=== PATIENT | female | born 1995 | race Caucasian/White ===

== ENCOUNTER 2016-07-08 12:47 | Day surgery (SDC) | payer MEDICAID, OTHER ==
[~2016-07-08 12:47] MED LIST: Bupivacaine 0.5% 50 ML MDV ONE; Lidocaine 1% with EPINEPHrine 1:100,000 50 ML MDV ONE; Midazolam 1 MG/ML 2 ML SDV ONE; Propofol 200 MG/20 ML SDV ONE; fentaNYL 100 MCG/2 ML SDV ONE
[2016-07-08] MEDS ORDERED: Sodium Chloride 0.9% 1,000 ML IV SCH (13:30)
[2016-07-08] MEDS ORDERED: ceFAZolin 2 GM in Sodium Chloride 0.9% 50 ML IV ONE (13:30)
[2016-07-08] MEDS ORDERED: Ondansetron 4 MG/2 ML SDV ONE (13:59)
[2016-07-08] MEDS ORDERED: metroNIDAZOLE/Normal Saline 500 MG in Premix Bag 1 BAG IV ONE (14:00)
[2016-07-08] MEDS ORDERED: Bacitracin Oint 1 GM U/D Packet ONE (14:20)
[2016-07-08 15:28] VITALS: BP 128/79
--- NOTE | 2016-07-11 07:27 | OR ---
DATE OF PROCEDURE: 07/08/2016 PROCEDURE: Excision right perineal/buttock lesion. COMPLICATIONS: None. BED MAKER: None. ANESTHESIA: MAC/local. INDICATIONS: This 20-year-old female with a right buttock/perineal lesion requiring excision. Risks, benefits, alternatives, and limitations, including but not limited to, infection, bleeding, and the wound failure were explained to the patient and she wished to proceed. PROCEDURE IN DETAIL: The patient was placed in supine position in the frog leg position. This area was prepped and draped. An elliptical incision was made approximately 3.5 cm in size. This was performed after anesthetizing with lidocaine. This was performed using a 15 blade. Electrocautery was then used to carry this down full thickness. This was then excised and sent for pathology. The wound was then closed with 3-0 Vicryl in an interrupted fashion, 4-0 Prolene in a running fashion. The patient tolerated the procedure well. Ritesh Chun MD /[id number]
== END 2016-07-08 15:30 | disposition home or self-care (01) ==
LOC: JP.SDS 12:47
PROVIDERS: ATTEND Surgery
DX: L02.31 Cutaneous abscess of buttock (principal); Z91.09 Other allergy status, other than to drugs and biological substances
CPT/HCPCS: 21931; J0690; J2250; J2405; J2704; J3010; J7040; J7050; 88304

== ENCOUNTER 2017-07-11 07:04 | Emergency (ER) | payer SELFPAY ==
[2017-07-11 07:23] VITALS: BP 123/78
[2017-07-11] MEDS ORDERED: Ondansetron 4 MG/2 ML SDV IVPUSH ONE (07:34)
[2017-07-11] MEDS ORDERED: HYDROmorphone 0.5 MG/0.5 ML Syringe IVPUSH ONE (07:34)
--- NOTE | 2017-07-11 07:37 | EDM.PDOC ---
ED HPI GENERAL MEDICAL PROBLEM - General Chief Complaint: Abdominal Pain Stated Complaint: RIGHT ABD PAIN Time Seen by Provider: 07/11/17 07:34 Source of Information: Reports: Patient History Limitations: Reports: No Limitations - History of Present Illness INITIAL COMMENTS - FREE TEXT/NARRATIVE: pt developed acute rt flank pain at five thirty this am. She does have a history of a kidney stone in the past. She has not vomited. She is rating her pain at a 9. Onset: Today, Sudden Duration: Hour(s): Location: Reports: Abdomen, Back Associated Symptoms: Reports: No Other Symptoms - Related Data Allergies Allergy/AdvReac Type Severity Reaction Status Date / Time nickel Allergy Rash Verified 07/11/17 07:17 Home Meds: Home Meds Clobetasol [Clobetasol Propionate 0.05%] 45 gm TOP BID 07/08/16 [History] Triamcinolone Acetonide [Kenalog 0.1% Crm] 0 gm TOP BID 07/08/16 [History] cycloSPORINE, Modified [Cyclosporine Modified] 200 mg PO BID 07/11/17 [History] Past Medical History - Past Health History Medical/Surgical History: Denies Medical/Surgical History Gastrointestinal History: Reports: GERD Other Gastrointestinal History: GERD with Genitourinary History: Reports: UTI, Recurrent 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: Hematologic History: Reports: Anemia Other Hematologic History: with this Dermatologic History: Reports: Eczema - Infectious Disease History Infectious Disease History: Reports: Chicken Pox - Past Surgical History Head Surgeries/Procedures: Reports: None Female Surgical History: Reports: D&C Social & Family History - Family History HEENT: Reports: None GI: Reports: GERD Endocrine/Metabolic: Reports: Diabetes, type II Oncologic: Reports: Other (See Below) Other Oncologic Family History: testicullar - Tobacco Use Smoking Status *Q: Current Every Day Smoker Years of Tobacco use: 5 Packs/Tins Daily: 0.5 Used Tobacco, but Quit: No Second Hand Smoke Exposure: No - Caffeine Use Caffeine Use: Reports: Coffee, Soda - Alcohol Use Days Per Week of Alcohol Use: 1 Number of Drinks Per Day: 1 Total Drinks Per Week: 1 - Recreational Drug Use Recreational Drug Use: No ED ROS GENERAL - Review of Systems Review Of Systems: See Below Constitutional: Reports: Malaise, Diaphoresis HEENT: Reports: No Symptoms Respiratory: Reports: No Symptoms Cardiovascular: Reports: No Symptoms Endocrine: Reports: No Symptoms GI/Abdominal: Reports: Abdominal Pain, Other ( severe rt flank pin) Musculoskeletal: Reports: No Symptoms ED EXAM, GI/ABD - Physical Exam Exam: See Below Text/Narrative:: pt arrivd with alot of pain in the rt flank and rt lower abdoman. This did start about 5 am. She does have a history of frequent UTIs. Exam Limited By: No Limitations General Appearance: Alert, Severe Distress, Other (pt is rating her pain at a 9. ) Ears: Normal TMs Nose: Normal Inspection Throat/Mouth: Normal Inspection Head: Atraumatic Neck: Normal Inspection Respiratory/Chest: No Respiratory Distress, Other (pt has had a cough and she has a few rales at the rt lung base. ) GI/Abdominal Exam: Soft, Other ( tender in th rt flank and rt lower abdoman. She does not have true guarding. ) (Female) Exam: Deferred Rectal (Female) Exam: Deferred Back Exam: CVA Tenderness (R) Extremities: Normal Inspection Neurological: Alert, Oriented, Normal Cognition Course - Vital Signs Last Recorded V/S: Last Vital Signs Temp 36.1 C 07/11/17 07:22 Pulse 87 07/11/17 07:22 Resp 16 07/11/17 07:22 BP 123/78 07/11/17 07:22 Pulse Ox 99 07/11/17 07:22 - Orders/Labs/Meds Orders: Active Orders 24 hr Category Date Time Status Abdomen Pelvis wo Cont [CT] Stat Exams 07/11/17 08:19 Taken CULTURE URINE [RM] Stat Lab 07/11/17 08:19 Received UA W/MICROSCOPIC [URIN] Urgent Lab 07/11/17 07:37 Ordered Acetaminophen/oxyCODONE [Percocet 325-5 MG] Med 07/11/17 09:40 Once 1 tab PO ONETIME ONE Levofloxacin/Dextrose 5%-Water [Levaquin in D5W 500 MG/ Med 07/11/17 09:04 Active 100 ML] 500 mg Premix Bag 1 bag IV ONETIME Sodium Chloride 0.9% [Normal Saline] 1,000 ml Med 07/11/17 07:45 Active IV ASDIRECTED Sodium Chloride 0.9% [Normal Saline] 1,000 ml Med 07/11/17 08:30 Active IV ASDIRECTED Medication Orders Sodium Chloride (Normal Saline) 1,000 mls @ 999 mls/hr IV ASDIRECTED ISABELLE Last Admin: 07/11/17 07:50 Dose: 999 mls/hr Sodium Chloride (Normal Saline) 1,000 mls @ 999 mls/hr IV ASDIRECTED ISABELLE Last Admin: 07/11/17 09:14 Dose: 999 mls/hr Levofloxacin/Dextrose 500 mg/ (Premix) 100 mls @ 100 mls/hr IV ONETIME ONE Stop: 07/11/17 10:03 Last Admin: 07/11/17 09:13 Dose: 100 mls/hr Labs: Laboratory Tests 07/11/17 07/11/17 07/11/17 Range/Units 07:37 07:55 07:55 WBC 12.6 H (4.5-11.0) K/uL RBC 4.19 (3.30-5.50) M/uL Hgb 12.8 (12.0-15.0) g/dL Hct 38.8 (36.0-48.0) % MCV 93 (80-98) fL MCH 31 (27-31) pg MCHC 33 (32-36) % Plt Count 223 (150-400) K/uL Neut % (Auto) 52 (36-66) % Lymph % (Auto) 38 (24-44) % [place] % (Auto) 8 H (2-6) % Eos % (Auto) 1 L (2-4) % Baso % (Auto) 0 (0-1) % Sodium 138 L (140-148) mmol/L Potassium 3.5 L (3.6-5.2) mmol/L Chloride 104 (100-108) mmol/L Carbon Dioxide 25 (21-32) mmol/L Anion Gap 12.5 (5.0-14.0) mmol/L BUN 16 D (7-18) mg/dL Creatinine 1.0 (0.6-1.0) mg/dL Est Cr Clr Drug Dosing 79.40 mL/min Estimated GFR (MDRD) > 60 (>60) Glucose 95 (74-106) mg/dL Calcium 8.6 (8.5-10.1) mg/dL Total Bilirubin 0.4 (0.2-1.0) mg/dL AST 17 (15-37) U/L ALT 38 (12-78) U/L Alkaline Phosphatase 61 (46-116) U/L Total Protein 6.2 L (6.4-8.2) g/dL Albumin 3.3 L (3.4-5.0) g/dL Globulin 2.9 (2.3-3.5) g/dL Albumin/Globulin Ratio 1.1 L (1.2-2.2) Urine Color Yellow Urine Appearance Cloudy Urine pH 5.0 (4.5-8.0) Ur Specific [place] 1.025 (1.008-1.030) Urine Protein 500 H (NEGATIVE) mg/dL Urine Glucose (UA) Normal (NEGATIVE) mg/dL Urine Ketones Negative (NEGATIVE) mg/dL Urine Occult Blood Large (NEGATIVE) Urine Nitrite Positive H (NEGATIVE) Urine Bilirubin Small (NEGATIVE) Urine Urobilinogen 1 (NORMAL) mg/dL Ur Leukocyte Esterase Large (NEGATIVE) Urine RBC 10-20 H (0-5) Urine WBC 50-75 H (0-5) Ur Epithelial Cells Few Amorphous Sediment Not seen Urine Bacteria Many Urine Mucus Few Meds: Medications Generic Name Dose Route Start Last Admin Trade Name Freq PRN Reason Stop Dose Admin Sodium Chloride 1,000 mls @ 999 mls/hr 07/11/17 07:45 07/11/17 07:50 Normal Saline IV 999 mls/hr ASDIRECTED ISABELLE Administration Sodium Chloride 1,000 mls @ 999 mls/hr 07/11/17 08:30 07/11/17 09:14 Normal Saline IV 999 mls/hr ASDIRECTED ISABELLE Administration Levofloxacin/Dextrose 500 mg/ 100 mls @ 100 mls/hr 07/11/17 09:04 07/11/17 09 :13 Premix IV 07/11/17 10:03 100 mls/hr ONETIME ONE Administration Discontinued Medications Generic Name Dose Route Start Last Admin Trade Name Freq PRN Reason Stop Dose Admin Hydromorphone HCl 0.5 mg 07/11/17 07:34 07/11/17 07:49 Dilaudid IVPUSH 07/11/17 07:35 0.5 mg ONETIME ONE Administration Hydromorphone HCl 1 mg 07/11/17 09:04 07/11/17 09:13 Dilaudid IVPUSH 07/11/17 09:05 1 mg ONETIME ONE Administration Ondansetron HCl 4 mg 07/11/17 07:34 07/11/17 07:49 Zofran IVPUSH 07/11/17 07:35 4 mg ONETIME ONE Administration - Re-Assessments/Exams Free Text/Narrative Re-Assessment/Exam: 07/11/17 09:35 urine is clearly infected, cat scan shows that she could have passed a small stone. Her wbc is not sig elevated. Departure - Departure Time of Disposition: 09:36 Disposition: Home, Self-Care 01 Condition: Fair Clinical Impression: Kidney infection, Dehydration - Discharge Information Referrals: PCP,None [Primary Care Provider] - Forms: ED Department Discharge Care Plan Goals: push fluids, appt with Melanie Rafael in 4-5 days, cipro 500mg bid for 10 days. percocet 5/325 q6h prn for pain #8 - My Orders Last 24 Hours: My Active Orders 07/11/17 07:37 UA W/MICROSCOPIC [URIN] Urgent 07/11/17 07:45 Sodium Chloride 0.9% [Normal Saline] 1,000 ml IV ASDIRECTED 07/11/17 08:19 Abdomen Pelvis wo Cont [CT] Stat CULTURE URINE [RM] Stat 07/11/17 08:30 Sodium Chloride 0.9% [Normal Saline] 1,000 ml IV ASDIRECTED 07/11/17 09:04 Levofloxacin/Dextrose 5%-Water [Levaquin in D5W 500 MG/100 ML] 500 mg Premix Bag 1 bag IV ONETIME 07/11/17 09:40 Acetaminophen/oxyCODONE [Percocet 325-5 MG] 1 tab PO ONETIME ONE - Assessment/Plan Last 24 Hours: My Active Orders 07/11/17 07:37 UA W/MICROSCOPIC [URIN] Urgent 07/11/17 07:45 Sodium Chloride 0.9% [Normal Saline] 1,000 ml IV ASDIRECTED 07/11/17 08:19 Abdomen Pelvis wo Cont [CT] Stat CULTURE URINE [RM] Stat 07/11/17 08:30 Sodium Chloride 0.9% [Normal Saline] 1,000 ml IV ASDIRECTED 07/11/17 09:04 Levofloxacin/Dextrose 5%-Water [Levaquin in D5W 500 MG/100 ML] 500 mg Premix Bag 1 bag IV ONETIME 07/11/17 09:40 Acetaminophen/oxyCODONE [Percocet 325-5 MG] 1 tab PO ONETIME ONE
[2017-07-11] MEDS ORDERED: Sodium Chloride 0.9% 1,000 ML IV SCH ×2 (07:45→08:30)
[2017-07-11] MEDS ORDERED: Levofloxacin/Dextrose 5%-Water 500 MG in Premix Bag 1 BAG IV ONE (09:04)
[2017-07-11] MEDS ORDERED: HYDROmorphone 1 MG/ML Syringe IVPUSH ONE (09:04)
[2017-07-11] MEDS ORDERED: Acetaminophen/oxyCODONE 325-5 MG Tab PO ONE (09:40)
--- NOTE | 2017-07-11 09:56 | CT ---
Abdomen Pelvis wo Cont INDICATION: rt flank pin. TECHNIQUE: CT images of the abdomen and pelvis obtained without oral or IV contrast. Dosage reduction and iterative reconstruction techniques employed. COMPARISON: CT 06/22/2015 FINDINGS: Study is Limited without oral or IV contrast. Small infiltrate in the right lower lobe. There is no evidence of tract calculi or signs of obstruction. No perinephric stranding. Mild div erticulosis in the sigmoid colon, but no evidence of diverticulitis. Appendix unremarkable. No asci colleen. No free air. Liver and spleen unremarkable on this noncontrast study. No bladder wall thickeni ng. No evidence of bowel obstruction. No gallstones or pericholecystic induration. Pancreas appear s unremarkable. IUD in the uterus. IMPRESSION: 1. Right lower lobe pneumonia. 2. No tract calculi or signs of obstruction. Discussed with Dr. Doreen Smith immediately following the study.
== END 2017-07-11 10:30 | disposition home or self-care (01) ==
LOC: JP.ED 07:04
DX: N15.9 Renal tubulo-interstitial disease, unspecified (principal); E86.0 Dehydration; J18.9 Pneumonia, unspecified organism; F17.210 Nicotine dependence, cigarettes, uncomplicated; K21.9 Gastro-esophageal reflux disease without esophagitis; Z91.09 Other allergy status, other than to drugs and biological substances
CPT/HCPCS: 36415; 74176; 80053; 81001; 85025; 87086; 87088; 87186; 96361; 96365; 96375; 96376; 99283; 99284; A9270; J1170; J1956; J2405; J7040

== ENCOUNTER 2019-05-23 08:31 | Emergency (ER) | payer BC ==
[2019-05-23 08:45] VITALS: BP 138/74; PULSE 100
--- NOTE | 2019-05-23 09:26 | EDM.PDOC ---
ED HPI GENERAL MEDICAL PROBLEM - General Chief Complaint: Lower Extremity Injury/Pain Stated Complaint: LEFT LEG IS INFECTED Time Seen by Provider: 05/23/19 09:05 Source of Information: Reports: Patient, Old Records, RN Notes Reviewed History Limitations: Reports: No Limitations - History of Present Illness INITIAL COMMENTS - FREE TEXT/NARRATIVE: 23-year-old female presents emergency department today for complaint of painful left lower extremity. She states has had pain for a few days of mild amount of redness over the last 24 hours the redness has significantly gotten worse it is warm to the touch and painful to the touch. She was evaluated by her primary care yesterday evaluation for DVT including d-dimer and ultrasound both negative blood work CBC, CMP, LDH, CK level all unremarkable aldolase level is pending prescription written for prednisone however she did not fill this prescription. 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: Endocrine/Metabolic History: Reports: Obesity/BMI 30+ Hematologic History: Reports: Anemia Other Hematologic History: with this Dermatologic History: Reports: Eczema - Infectious Disease History Infectious Disease History: Reports: Chicken Pox - Past Surgical History Head Surgeries/Procedures: Reports: None HEENT Surgical History: Reports: None GI Surgical History: Reports: None Female Surgical History: Reports: D&C Endocrine Surgical History: Reports: None Dermatological Surgical History: Reports: None Social & Family History - Family History HEENT: Reports: None GI: Reports: GERD Endocrine/Metabolic: Reports: Diabetes, type II Oncologic: Reports: Other (See Below) Other Oncologic Family History: testicullar - Tobacco Use Smoking Status *Q: Current Every Day Smoker Years of Tobacco use: 8 Packs/Tins Daily: 0.5 Second Hand Smoke Exposure: No - Caffeine Use Caffeine Use: Reports: Coffee, Soda - Recreational Drug Use Recreational Drug Use: No Review of Systems - Review of Systems Review Of Systems: See Below Constitutional: Reports: No Symptoms Respiratory: Reports: No Symptoms Cardiovascular: Reports: No Symptoms Musculoskeletal: Reports: Leg Pain, Muscle Pain Skin: Reports: Pallor, Erythema, Change in Color ED EXAM, GENERAL - Physical Exam Exam: See Below Free Text/Narrative:: Examination of the left lower extremity I do appreciate an erythematous patch predominantly on the medial aspect of the lower extremity it is warm to the touch it is tender to the touch I do not appreciate any breaks in the skin however she did shave approximately 6 days prior Exam Limited By: No Limitations General Appearance: Alert, WD/WN, No Apparent Distress Respiratory/Chest: No Respiratory Distress Course - Vital Signs Last Recorded V/S: Last Vital Signs Temp 98.3 F 05/23/19 08:46 Pulse 100 05/23/19 08:46 Resp 16 05/23/19 08:46 BP 138/74 05/23/19 08:46 Pulse Ox 98 05/23/19 08:46 Departure - Departure Time of Disposition: 09:29 Disposition: Home, Self-Care 01 Condition: Fair Clinical Impression: Cellulitis Qualifiers: Site of cellulitis: extremity Site of cellulitis of extremity: lower extremity Laterality: left Qualified Code(s): L03.116 - Cellulitis of left lower limb - Discharge Information Instructions: Cellulitis, Adult Referrals: Jacquelyn Hall CNM [Primary Care Provider] - Additional Instructions: Take full course of antibiotics, [facility], recommend not filling the prescription of prednisone, please followup with your primary care provider in 3-5 days if not better, please call return to the emergency department with worsening of symptoms. Sepsis Event Note - Evaluation Sepsis Screening Result: No Definite Risk - Focused Exam Vital Signs: Vital Signs Temp Pulse Resp BP Pulse Ox 05/23/19 08:46 98.3 F 100 16 138/74 98 05/23/19 08:44 98.3 F 100 16 138/74 98 Date Exam was Performed: 05/23/19 Time Exam was Performed: 09:20 - Assessment/Plan Plan: Assessment Acuity = acute Site and laterality = left lower extremity cellulitis Etiology = probable bacterial cause Manifestations = none Location of injury = Home Lab values = reviewed lab work from yesterday which was unremarkable aldolase is still pending Plan Elected to treat empirically with Keflex 500 mg every 8 hours x7 days prescription has been faxed to [facility] follow-up with primary care 3 to 5 days if no improvement This note was dictated using [employer] voice recognition software please call with any questions on syntax or grammar.
== END 2019-05-23 09:37 | disposition home or self-care (01) ==
LOC: JP.ED 08:31
DX: L03.116 Cellulitis of left lower limb (principal); F17.210 Nicotine dependence, cigarettes, uncomplicated; E66.9 Obesity, unspecified; Z68.34 Body mass index [BMI] 34.0-34.9, adult; Z91.09 Other allergy status, other than to drugs and biological substances
CPT/HCPCS: 99283